=== PATIENT | female | born 1980 | race African-American/Black ===

== ENCOUNTER 2016-07-12 02:42 | Emergency (ER) | payer OTHER ==
[~2016-07-12] VITALS: Ht 157.5 cm; Wt 108.0 kg
[2016-07-12 05:23] VITALS: BP 139/88
== END 2016-07-12 05:25 | disposition home or self-care (01) ==
LOC: M ED 03:54
DX: J02.9 Acute pharyngitis, unspecified (principal); Z88.8 Allergy status to other drugs, medicaments and biological substances; Z72.0 Tobacco use; F41.9 Anxiety disorder, unspecified

== ENCOUNTER 2017-02-13 11:51 | Emergency (ER) | payer OTHER ==
[~2017-02-13] VITALS: Ht 157.5 cm; Wt 102.7 kg
[2017-02-13] MEDS ORDERED: ALBUTEROL SULFATE 2.5 MG/0.5 ML INH NEB SOLN INH ONE (12:45)
[2017-02-13 12:59] LABS: BASO % 0.2 % (0.0-1.0); EOS # 0.1 10^3/uL (0.0-0.50); EOS % 1.1 % (0.0-3.0); IMMATURE GRANULOCYTE % 0.3 % (0-0); LYMPH # 2.7 10^3/uL (1.5-4.5); LYMPH % 22.1 % (24.0-44.0); MEAN CORPUSCULAR HEMOGLOBIN 29.4 pg (27.0-33.0); MEAN CORPUSCULAR HGB CONC 33.6 g/dl (32.0-36.5); MEAN CORPUSCULAR VOLUME 87.3 fl (80.0-96.0); MONO # 0.7 10^3/uL (0.0-0.8); NEUTROPHILS # 8.4 10^3/uL (1.8-7.7); NEUTROPHILS % 70.3 % (36.0-66.0); PLATELET COUNT, AUTOMATED 394 10^3/uL (150-450); RED CELL DISTRIBUTION WIDTH 13.5 % (11.5-14.5)
[2017-02-13 13:12] LABS: CONTROL LINE HCG INT CTR LINE PRESENT
[2017-02-13 13:27] LABS: ANION GAP 7 MEQ/L (8-16); BLOOD UREA NITROGEN 12 MG/DL (7-18); CALCIUM LEVEL 9.5 MG/DL (8.5-10.1); CARBON DIOXIDE LEVEL 28 MEQ/L (21-32); CHLORIDE LEVEL 107 MEQ/L (98-107); CREATININE FOR GFR 0.73 MG/DL (0.55-1.02); GLOMERULAR FILTRATION RATE > 60.0 (>60); GLUCOSE, FASTING 117 MG/DL (70-105); POTASSIUM SERUM 3.7 MEQ/L (3.5-5.1); SODIUM LEVEL 142 MEQ/L (136-145)
--- NOTE | 2017-02-13 13:47 | REP ---
Clinical: Pain . Technique: Braswell scale and color Doppler evaluation using linear high frequency transducer. Findings: Ultrasound examination of the left lower extremity deep venous structures from the common femoral vein to the popliteal vein demonstrates normal compressibility flow and wave patterns in response to respiration and augmentation. There is no evidence for deep venous thrombosis. Impression: No evidence for deep venous thrombosis left lower extremity . Signed by Leon Pace MD 02/13/2017 01:38 P
--- NOTE | 2017-02-13 13:59 | REP ---
Chest two views HISTORY: Chest pain Comparison: None The lungs are clear. The heart is normal in size. The pulmonary vasculature is normal in appearance. The bony structure is intact. IMPRESSION: No acute disease. Signed by Jose Juan Tadeo MD 02/13/2017 01:50 P
[2017-02-13] MEDS ORDERED: KETOROLAC 30 MG/ML VIAL (J1885) IV ONE (14:15)
[2017-02-13] MEDS ORDERED: PRED20TA PO (15:13)
[2017-02-13] MEDS ORDERED: ALBU17IN2 INH (15:13)
[2017-02-13] MEDS ORDERED: predniSONE 20 MG TAB PO ONE (15:15)
[2017-02-13 15:25] VITALS: BP 136/93
--- NOTE | 2017-02-14 10:44 | ECGEPIP ---
Stationary ECG Study [facility] - ED Test Date: 2017-02-13 Pat Name: SAAD BUTT Department: Room: - Gender: F [employer] Supervisor: kiesha : 1980 Requested By: Broderick John Order Number: [id number] Reading MD: Aaliyah Phillips Measurements Intervals [place] Rate: 86 P: 63 HI: 143 QRS: 62 QRSD: 90 T: -18 QT: 335 QTc: 403 Interpretive Statements SINUS RHYTHM NONSPECIFIC T-WAVE ABNORMALITY NO PRIOR FOR COMPARISON Electronically Signed On 02-14-2017 10:44:24 EST by Aaliyah Phillips
== END 2017-02-13 15:29 | disposition home or self-care (01) ==
LOC: M ED 11:51
DX: M94.0 Chondrocostal junction syndrome [Tietze] (principal); J20.9 Acute bronchitis, unspecified; F41.9 Anxiety disorder, unspecified; F17.200 Nicotine dependence, unspecified, uncomplicated; Z91.89 Other specified personal risk factors, not elsewhere classified
CPT/HCPCS: 71020; 80048; 84443; 84703; 85025; 93005; 93971; 94640; 96374; 99284; J1885